=== PATIENT | female | born 1970 | race Caucasian/White ===

== ENCOUNTER 2017-03-13 15:52 | Observation (INO) | payer OTHER ==
--- NOTE | 2017-03-13 16:09 | CPEKG ---
Heart Rate: 71 RR Interval: 845 P-R Interval: 168 QRSD Interval: 94 QT Interval: 376 QTC Interval: 409 P [place]: 49 QRS [place]: 49 T Wave [place]: 21 EKG Severity - ABNORMAL ECG - EKG Impression: POSSIBLE ATRIAL ARRHYTHMIA, A-RATE 192 EKG Impression: NONSPECIFIC T ABNORMALITIES, ANT-LAT LEADS Electronically Signed By: Mingo Cruz 13-Mar-2017 16:36:28
--- NOTE | 2017-03-13 16:13 | EDPHY ---
H & P Time Seen by Provider: 03/13/17 15:53 HPI/ROS: Chief complaint. Chest pain, neck pain HPI. 46-year-old female here by EMS with left neck pain and chest pain. The patient has a history of bilateral carotid artery dissections with stent in the left carotid artery placed in 2009. She has also had vertebral artery dissection. She has a thoracic ascending aortic aneurysm. These are secondary to a connective tissue disorder. At about 12:30 p.m. she felt her blood pressure was elevating she took her blood pressure 136/94. She developed left- sided neck pain as well as mid chest pain that she describes as tight and pressure. Slight shortness of breath. No fever cough. No focal weakness or paresthesias. Patient received Versed per EMS and is requesting pain medication specifically Dilaudid by name ROS Constitutional. no fever/chills, no weakness Eyes. no problems with vision ENT. Left-sided neck pain Cardiovascular. Mid sternal chest pain Respiratory. Slight shortness of breath Abdominal. no abdominal pain, no nausea/vomiting, no diarrhea . no problems urinating MS. no calf pain/swelling, no neck/back pain, no joint pain Skin. no rash Lymph. no swollen glands Neuro. 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 Appendectomy. Thoracic ascending aortic dissection. Social History: Single, nonsmoker, no alcohol Smoking Status: Never smoked Physical Exam: General Appearance: Alert well-developed female mild distress vital signs are stable with initial blood pressure 118/86 Eyes: Pupils equal and round no pallor or injection. ENT, no bruit or thrill to the left side of her neck or either side. Respiratory: There are no retractions, lungs are clear to auscultation. Cardiovascular: Regular rate and rhythm. Gastrointestinal: Abdomen is soft and nontender, no masses, bowel sounds normal. Neurological: Awake and alert, sensory and motor exams grossly normal. Skin: Warm and dry, no rashes. Musculoskeletal: Neck is supple nontender. Extremities symmetrical, full range of motion. Psychiatric: Patient is oriented X 3, there is no agitation. Constitutional: Initial Vital Signs Temperature (C) 36.9 C 03/13/17 16:03 Heart Rate 74 03/13/17 16:03 Respiratory Rate 18 03/13/17 16:03 Blood Pressure 118/86 H 03/13/17 16:03 O2 Sat (%) 97 03/13/17 16:03 O2 Delivery Mode Room Air Allergies/Adverse Reactions: No Known Allergies Allergy (Verified 10/04/16 18:25) Home Medications: Medication Instructions Recorded Crestor 10 mg PO 08/01/11 LORATADINE 08/01/11 Lovaza 4 g PO DAILY 08/01/11 Niaspan 2,000 mg PO DAILY 08/01/11 Norvasc 10 mg 10 mg PO DAILY 08/01/11 Toprol Xl 150 mg PO BID 08/01/11 Nasonex 09/26/11 Singulair 09/26/11 Wellbutrin Sr 09/26/11 Xanax 0.5mg 09/26/11 Hydrochlorothiazide 10/04/16 Losartan Potassium 10/04/16 oxyCODONE IR [Oxycodone Ir (*)] 5 - 10 mg PO Q4H PRN #20 tab 10/04/16 Medical Decision Making - Diagnostics EKG Interpretation: EKG interpreted by me shows normal sinus rhythm normal interval. Lactic left axis deviation. QRS is normal there is T-wave inversion in leads V2 through V4. No significant ST elevation or depression. The T-wave changes are new since previous EKG July 2011. Rate is 71 EKG 2. Is unchanged. Still no ST elevation or depression. Rate is 68 Imaging Results: Imaging Impressions Chest X-Ray 03/13/17 16:30 Impression: No acute findings in the chest. Chest/Thorax CTA 03/13/17 16:30 Impression: 1. No evidence of thrombopulmonary embolic disease. 2. Normal caliber aorta. No dissection or aneurysm. 3. Clear lungs. No acute pulmonary process. Findings discussed with Emergency Department physician, Dr. Mingo Cruz on March 13, 2017 at 1750 hours. Neck CTA 03/13/17 16:30 Impression: 1. No acute dissection. 2. Widely patent left internal carotid artery stent. 3. 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 4. Focal ectasia versus pseudoaneurysm distal right internal carotid artery at the skull base is unchanged since 2009. Measurement of carotid stenosis is based on the residual internal carotid diameter with [place] Symptomatic Carotid Endarterectomy Trial (NASCET) based stenosis levels. Findings discussed with Emergency Department physician, Mingo Cruz M.D., at March 13, 2017 at 1753 hours. One-view chest x-ray interpreted by me is normal CT angiogram chest and also CTA of the vessels of the neck show no evidence of PE. Aorta is fine. There is no dissection. Left carotid stent is wide open. Right carotid is stable since 2009. Vertebral arteries are unchanged. Procedures: IV normal saline. Dilaudid for pain. Zofran for nausea ED Course/Re-evaluation: New T-wave changes Patient is asking for pain medication, anxiety medication, Compazine. She tells me that 0.5 mg Dilaudid is not sufficient for her. Re-evaluation at 5:50 p.m.. The patient and I discussed lab work, EKG findings including new subtle changes, imaging study results. Patient tells me that the last time she was in exam planned had an EKG they told her that she did have some subtle changes but she does not know what they were. She and I discussed repeating troponin and EKG. She is offered admission. 2nd troponin and 2nd EKG are unchanged. Patient agrees to admission. She is given aspirin. She refuses nitroglycerin as her physician at [facility] apparently told her never to take nitroglycerin. I consulted and discussed the case with Dr. pugh, hospitalist, who agrees to the admission Differential Diagnosis: I considered carotid and vertebral artery dissection. I considered aortic dissection. I have considered acute coronary syndrome as well as pulmonary embolus. - Data Points Laboratory Results: Laboratory Results 03/13/17 18:50 03/13/17 15:06 03/13/17 03/13/17 03/13/17 18:50 18:50 16:42 WBC REJ RBC REJ Hgb REJ POC Hgb 15.3 gm/dL gm/dL (12.3-15.9) Hct REJ POC Hct 45 % % (35.5-47.5) MCV REJ MCH REJ MCHC REJ RDW REJ Plt Count REJ MPV REJ Neut % (Auto) REJ Lymph % (Auto) REJ [place] % (Auto) REJ Eos % (Auto) REJ Baso % (Auto) REJ Nucleat RBC Rel Count REJ Absolute Neuts (auto) REJ Absolute Lymphs (auto) REJ Absolute Monos (auto) REJ Absolute Eos (auto) REJ Absolute Basos (auto) REJ Absolute Nucleated RBC REJ Immature Gran % REJ Immature Gran # REJ PT INR APTT D-Dimer POC Sodium 138 mEq/L mEq/L (134-144) Sodium POC Potassium 3.9 mEq/L mEq/L (3.3-5.0) Potassium POC Chloride 100 mEq/L mEq/L (96-108) Chloride Carbon Dioxide Anion Gap POC BUN 28 mg/dL H mg/dL (7-23) BUN Creatinine POC Creatinine 0.5 mg/dL L mg/dL (0.6-1.2) Estimated GFR Glucose POC Glucose 99 mg/dL mg/dL (70-100) Calcium Troponin I < 0.012 ng/mL ng/mL (0-0.034) 03/13/17 03/13/17 03/13/17 15:06 15:06 15:06 WBC REJ RBC REJ Hgb REJ POC Hgb Hct REJ POC Hct MCV REJ MCH REJ MCHC REJ RDW REJ Plt Count REJ MPV REJ Neut % (Auto) REJ Lymph % (Auto) REJ [place] % (Auto) REJ Eos % (Auto) REJ Baso % (Auto) REJ Nucleat RBC Rel Count REJ Absolute Neuts (auto) REJ Absolute Lymphs (auto) REJ Absolute Monos (auto) REJ Absolute Eos (auto) REJ Absolute Basos (auto) REJ Absolute Nucleated RBC REJ Immature Gran % REJ Immature Gran # REJ PT 12.2 SEC SEC (12.0-15.0) INR 0.91 (0.83-1.16) APTT 25.1 SEC SEC (23.0-38.0) D-Dimer < 0.27 ug/mLFEU ug/mLFEU (0.00-0.50) POC Sodium Sodium 135 mEq/L mEq/L (134-144) POC Potassium Potassium 4.3 mEq/L mEq/L (3.5-5.2) POC Chloride Chloride 100 mEq/L mEq/L (97-110) Carbon Dioxide 23 mEq/l mEq/l (22-31) Anion Gap 12 mEq/L mEq/L (8-16) POC BUN BUN 27 mg/dL H mg/dL (7-23) Creatinine 0.6 mg/dL mg/dL (0.6-1.0) POC Creatinine Estimated GFR > 60 Glucose 91 mg/dL mg/dL (70-100) POC Glucose Calcium 9.3 mg/dL mg/dL (8.5-10.4) Troponin I < 0.012 ng/mL ng/mL (0-0.034) Medications Given: Discontinued Medications Aspirin (Aspirin) 324 mg PO EDNOW ONE Stop: 03/13/17 20:22 Last Admin: 03/13/17 20:26 Dose: 324 mg Hydromorphone HCl (Dilaudid) 0.5 mg IVP EDNOW ONE Stop: 03/13/17 16:32 Last Admin: 03/13/17 16:45 Dose: 0.5 mg Sodium Chloride (Ns) 1,000 mls @ 0 mls/hr IV ONCE ONE PRN Reason: Wide Open Stop: 03/13/17 16:32 Last Admin: 03/13/17 16:31 Dose: 1,000 mls Lorazepam (Ativan Injection) 1 mg IVP EDNOW ONE Stop: 03/13/17 17:29 Last Admin: 03/13/17 17:35 Dose: 1 mg Ondansetron HCl (Zofran) 4 mg IVP EDNOW ONE Stop: 03/13/17 16:33 Last Admin: 03/13/17 16:45 Dose: 4 mg Point of Care Test Results: 03/13/17 16:42 POC Sodium 138 POC Potassium 3.9 POC Chloride 100 POC BUN 28 H POC Creatinine 0.5 L POC Glucose 99 Departure - Departure Disposition: [facility] Inpatient Acute Clinical Impression: Chest pain Qualifiers: Chest pain type: unspecified Qualified Code(s): R07.9 - Chest pain, unspecified Condition: Good
[2017-03-13] MEDS ORDERED: HYDROmorphONE/DILAUDID 1 MG/ML SYR IVP ONE ×2 (16:31→21:37)
[2017-03-13] MEDS ORDERED: NS 1,000 ML IV ONE (16:31)
[2017-03-13] MEDS ORDERED: ONDANSETRON 4 MG/2 ML VIAL IVP ONE (16:32)
[2017-03-13] MEDS ORDERED: IOPAMIDOL (ISOVUE 370) 100 ML BTL IV ONE (16:34)
[2017-03-13 17:18] LABS: INR 0.91 (0.83-1.16); PROTIME(PATIENT) 12.2 SEC (12.0-15.0)
[2017-03-13 17:19] LABS: APTT 25.1 SEC (23.0-38.0)
[2017-03-13 17:22] LABS: ANION GAP 12 mEq/L (8-16); CALCIUM 9.3 mg/dL (8.5-10.4); CARBON DIOXIDE 23 mEq/l (22-31); CHLORIDE 100 mEq/L (97-110); CREATININE 0.6 mg/dL (0.6-1.0); GLOMERULAR FILTRATION RATE > 60; GLUCOSE 91 mg/dL (70-100); POTASSIUM 4.3 mEq/L (3.5-5.2); SODIUM 135 mEq/L (134-144)
[2017-03-13] MEDS ORDERED: LORazepam 2 MG/ML INJ IVP ONE ×2 (17:28→21:34)
[2017-03-13 17:34] LABS: TROPONIN I < 0.012 ng/mL (0-0.034)
--- NOTE | 2017-03-13 18:31 | CPEKG ---
Heart Rate: 68 RR Interval: 882 P-R Interval: 172 QRSD Interval: 86 QT Interval: 412 QTC Interval: 439 P [place]: 46 QRS [place]: 41 T Wave [place]: 45 EKG Severity - ABNORMAL ECG - EKG Impression: SINUS RHYTHM EKG Impression: NONSPECIFIC T ABNORMALITIES, ANTERIOR LEADS Electronically Signed By: Mingo Cruz 13-Mar-2017 21:31:34
[2017-03-13] MEDS ORDERED: NITROGLYCERIN 0.4 MG BTL SL PRN (20:21)
[2017-03-13] MEDS ORDERED: ASPIRIN 81 MG CHEWABLE TAB PO ONE (20:21)
[2017-03-13] MEDS ORDERED: ONDANSETRON 4 MG/2 ML VIAL IVP PRN (23:10)
[2017-03-13] MEDS ORDERED: ACETAMINOPHEN 325 MG TAB PO PRN (23:10)
[2017-03-13] MEDS ORDERED: ONDANSETRON DISINTEGRATING 4 MG TAB PO PRN (23:10)
[2017-03-13] MEDS ORDERED: oxyCODONE IR 5 MG TAB PO PRN (23:13)
[2017-03-13] MEDS: NS 1,000 ML IV SCH (23:26)
[2017-03-13] MEDS: HYDROmorphONE/DILAUDID 1 MG/ML SYR IVP PRN (23:47)
[2017-03-13] MEDS: MONTELUKAST SODIUM 10 MG TAB PO SCH (23:48)
[2017-03-13] MEDS: ALPRAZolam 1 MG TAB PO PRN (23:48)
[2017-03-13] MEDS: NIACIN ER 500 MG TAB.ER PO SCH (23:49)
[2017-03-13] MEDS: METOPROLOL SUCCINATE XR 50 MG TAB PO SCH (23:56)
--- NOTE | 2017-03-14 01:11 | GHP ---
[f rep st] HISTORY AND PHYSICAL DATE OF ADMISSION: 03/13/2017 CHIEF COMPLAINT: Chest and neck pain. HISTORY OF PRESENT ILLNESS: A 46-year-old female with a complicated medical history. She has some undefined connective tissue disorder which causes vascular aneurysms and dissections. She has had b ilateral carotid as well as vertebral artery dissections. She also has a thoracic aortic aneurysm. She sees physicians at [facility]. She is on a regimen of blood pressure medicine to keep he r blood pressure in the low 100s in order to prevent further dissections. She states that yesterday she had some heart palpitations in which she describes her heart stopping and her heart pausing for a short amount of time then speeding up. It was not a continuous tachycardia. She felt a little b it unwell this morning with predominantly fatigue. When she got to work, she developed some chest p ain and neck pain which was consistent with previous episodes of elevated blood pressure. She measu red her blood pressure and it was in the 130s to 140s which is high for her. She then came to the e mergency department. She states that this happens a few times a year and she usually goes to [facility] There, they give her pain medicine which then brings the blood pressure down. She is requestin g Dilaudid and Ativan. She states that she did not get enough of this in the ER and she is continui ng to have pain. She says the pain is a little bit different than previous and little bit more pres sure-like. She also has some dyspnea on exertion. She has not had any fevers or chills. REVIEW OF SYSTEMS: A 10-point Review of Systems was obtained and negative. PAST MEDICAL HISTORY: 1. Unspecified connective tissue disorder with bilateral carotid dissections as well as a left dailey tid stent. She also has a thoracic aortic aneurysm. 2. Chronic pain secondary to above. She sees pain management for that. 3. Depression and anxiety. MEDICATIONS: Reviewed. SOCIAL HISTORY: No smoking or alcohol. 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 FAMILY HISTORY: Did have grandfather who early from a ruptured aneurysm. PHYSICAL EXAM: VITAL SIGNS: Afebrile, blood pressure is 105/68, heart rate 67, oxygen saturation i s 95% on room air. GENERAL: The patient is well developed, no apparent distress. HEENT: Nonicter ic sclerae. Extraocular muscles intact. Moist mucous membranes. NECK: Supple. LUNGS: Good effo rt. Clear to auscultation bilaterally. CARDIOVASCULAR: Regular rate and rhythm. No murmurs, gall ops. EXTREMITIES: No clubbing, cyanosis, or edema. 2+ pedal pulses. NEUROLOGIC: Alert and orien glenn x3. Moving all 4 extremities equally. PSYCH: Normal mood and affect. LABORATORY DATA: Chemistries essentially normal. Troponins have been negative x3. EKG did show so me anterior T-wave inversions. CTA of the neck shows no dissections and patent left internal caroti d artery stent. CT of the chest is essentially negative with normal caliber aorta. ASSESSMENT: This is a 46-year-old female with history of an unspecified connective tissue disorder with a previous history of multiple dissections, who presents with chest and neck pain and high bloo d pressure that is a little bit higher than what her goal is. PLAN: 1. Chest and neck pain. The patient states that this is due to pressure on her vascular glaser. Napoleon geiger does have chronic pain. We will give her a bit more pain medicine tonight to see if we can get he r blood pressure better and comfortable enough to go home tomorrow. 2. Elevated blood pressure. This is above her goal of 100/60. If pain medicine does not work, jennifer sage add a little bit of clonidine which she has as-needed for systolic over 160. 3. Chest pain with anterior T-wave inversions. These are subtle. Her chest pain seems to be more typical. I am unclear of her congenital disease predisposes her to heart disease. However, she is a high risk cath patient due to her vascular abnormalities. She is also unable to get a stress test because they increase her blood pressure. We will continue to monitor overnight in telemetry. Jennifer sage get an echocardiogram in the morning. Will also get a troponin. They did do a cardiac CT in 2010 , and I am not sure if we need to do that again, but could consider that if her chest pain continues . Could also have Cardiology involved. 4. Disposition. Patient is being admitted to observation status. Case discussed with ER physician . Old records reviewed and summarized in HPI. /[id number]/MODL
[2017-03-14] MEDS: METOPROLOL SUCCINATE XR 50 MG TAB PO SCH ×3 (03:50→20:51)
[2017-03-14] MEDS: ALPRAZolam 1 MG TAB PO PRN (03:51)
[2017-03-14] MEDS ORDERED: KETOROLAC 30 MG/1 ML SDV IVP ONE (04:15)
[2017-03-14] MEDS: CETIRIZINE 10 MG TAB PO SCH (08:52)
[2017-03-14] MEDS: ROSUVASTATIN CALCIUM 10 MG TAB PO SCH (08:52)
[2017-03-14] MEDS: LOSARTAN POTASSIUM 50 MG TAB PO SCH (08:52)
[2017-03-14] MEDS: HYDROCHLOROTHIAZIDE 12.5 MG CAP PO SCH (08:52)
[2017-03-14] MEDS: buPROPion XL 150 MG TAB PO SCH (08:53)
[2017-03-14] MEDS ORDERED: MOMETASONE FUROATE NASAL SCH (09:00)
[2017-03-14] MEDS ORDERED: buPROPion XL 150 MG TAB PO SCH (09:00)
--- NOTE | 2017-03-14 09:06 | CPEKG ---
Heart Rate: 57 RR Interval: 1053 P-R Interval: 188 QRSD Interval: 82 QT Interval: 428 QTC Interval: 417 P [place]: 64 QRS [place]: 64 T Wave [place]: 55 EKG Severity - BORDERLINE ECG - EKG Impression: SINUS RHYTHM EKG Impression: NONSPECIFIC ST_T WAVE ABNORMAILITES Electronically Signed By: Jose Barry 14-Mar-2017 12:09:24
[2017-03-14] MEDS ORDERED: KETOROLAC 15 MG/1 ML SDV IVP ONE (09:10)
--- NOTE | 2017-03-14 09:10 | ECHO ---
[id number] + + [address] : : [place] [address] : : [phone] + Adult Echocardiographic Report + + :Name: OTNI GOMES JStudy Date: 03/14/2017 08:23 AM : : Hospital Admission Number: [id number] Loc ation: 143: :: 1970 Gender: Female Height: 64 in : :Age: 46 yrs Race: WH Weight: 144 lb : :Reason For Study: Eval LV Fx : : BSA: 1.7 me ters2 : :History: Chest Pain : + + MMode/2D Measurements \T\ Calculations IVSd: 0.71 cm LVIDd: 4.7 cm FS: 41.3 % Ao root diam: 2.9 cm LVPWd: 0.76 cm LVIDs: 2.7 cm EDV(Teich): 99.8 ml ACS: 1.8 cm ESV(Teich): 27.8 ml LA dimension: 3.0 cm EF(Teich): 72.2 % Normal Measurement Values: + + :LVIDd (3.5-5.7cm) IVSd (0.6-1.1cm) LVPWd (0.6-1.1cm) Aortic Root (2.0-3.7cm)Left Atrium (1.5-4.0cm): :LV Vol(d) (76-115ml) LV Vol(s) (29-48ml) Ejec Fraction (50-65%)PV Reinaldo (0.6- 1.2m/s) TV Reinaldo (0.4-1.0m/s) : :MV E Reinaldo (0.8-1.0m/s)MV A Reinaldo (0.3-1.0m/s)LVOT Reinaldo (0.7-1.2m/s) Asc Ao Reinaldo ( 0.9-1.8m/s) : + + Doppler Measurements \T\ Calculations MV E max rienaldo: Ao V2 max: LV V1 max: PA V2 max: 62.2 cm/sec 125.0 cm/sec 95.8 cm/sec 85.5 cm/sec MV A max reinaldo: Ao max P.3 mmHgLV V1 max PG: PA max P.7 cm/sec 3.7 mmHg 2.9 mmHg MV E/A: 1.0 TR max reinaldo: 209.0 cm/sec TR max P.5 mmHg RAP systole: 5.0 mmHg RVSP(TR): 22.5 mmHg Left Ventricle The left ventricle is normal in size and function. There is normal left ventricular wall thickness. The left ventricular ejection fraction is normal. Ejection Fraction = 73%. The left ventricular wall motion is normal. Right Ventricle The right ventricle is normal in size and function. Atria The left atrial size is normal. Right atrial size is normal. Mitral Valve The mitral valve is normal in structure and function. There is no mitral valve stenosis. There is trace mitral regurgitation. Tricuspid Valve There is trace to mild tricuspid regurgitation. Right ventricular systolic pressure is normal. Aortic Valve The aortic valve is trileaflet. The aortic valve opens well. There is no aortic stenosis. There is no aortic insufficiency. Pulmonic Valve The pulmonic valve is normal in structure and function. Great Vessels There is known borderline dilated Ao at 3.2 cm from 7.28.11, the ascending Ao measure 3.2 on this exam. Pericardium/Pleural There is no pericardial effusion. Conclusion A complete two-dimensional transthoracic echocardiogram was performed (2D, M-mode, Doppler and color flow Doppler). The left ventricle is normal in size and function. The left ventricular ejection fraction is normal. Ejection Fraction = 73%. The left ventricular wall motion is normal. The left atrial size is normal. Right atrial size is normal. The mitral valve is normal in structure and function. There is trace mitral regurgitation. There is trace to mild tricuspid regurgitation. Right ventricular systolic pressure is normal. The aortic valve is trileaflet. The pulmonic valve is normal in structure and function. There is known borderline dilated Ao at 3.2 cm from 7.28.11, the ascending Ao measure 3.2 on this exam. There is no pericardial effusion. Final Reading Physician: Dr Karis Abraham electronically signed on 03/14/2017 09:09 AM Ordering Physician: Ash Cisse Performed By: Wilian Son, [facility]
[2017-03-14] MEDS: NS 1,000 ML IV SCH ×3 (11:57→20:51)
[2017-03-14] MEDS: FLUTICASONE NASAL 120 SPRAYS/16 GM MDI EACHNARE SCH (13:28)
--- NOTE | 2017-03-14 13:43 | GCON ---
[f rep st] CONSULTATION CARDIOLOGY CONSULT DATE OF CONSULTATION: 03/14/2017 CHIEF COMPLAINT: Chest pain. HISTORY OF PRESENT ILLNESS: We were asked by Dr. Schuster to visit with the patient. The patient is a 46-year-old female with a history of nonspecific vascular disease. She does not carry a diagnosi s of vasculitis but has some undefined connective tissue disease that has manifest, since age 35, wi th dissections. She has had 2 separate dissections of the left carotid artery. The second required stenting and was complicated by stroke. 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 She had a dissection/fenestration of the right vertebral artery and an aneury sm of the right vertebral artery. She has borderline dilation of the ascending aorta and also intra mural hematoma formation in her descending aorta. She has gotten her vascular care at the [facility], as well as the [facility]. She is a very good historian and tells me that she has been tested for fibromuscular dysplasia, a variant of Loeys-Bartolome aortopathy, Nestor-Danlos, Mar randall's. At this point, she does not have a clear diagnosis for her aortopathy. She has never had a coronary event. She also sees Dr. Capone for tight blood pressure control. Yesterday, she presented to the ER because she was having increasing blood pressures at work. This happens a few times a year where she notices increased blood pressure associated with neck discomfor t and facial flushing. She also had some associated chest tightness. A few nights prior to this, s he had some palpitations while in bed. The day before she had the palpitations, she had gone on a l onger walk than usual and had a little bit of chest tightness. She also notes that she has had 2 ni ghts of cold sweats. In the ER, she was hypertensive for her, 145/90. Her goal blood pressure is 100-110/70. She was tr eated for this, and her blood pressure has improved, but she remains concerned that it took longer t rankin normal to improve. She also had a headache, quite severe, starting at 4 this morning that has r esponded somewhat to Toradol. She is currently not having chest pain. Troponins have been negative . REVIEW OF SYSTEMS: As per HPI. Otherwise, a full 10-point review of systems performed was negative . ALLERGIES: No known drug allergies. MEDICATIONS: Outpatient medications are reviewed in the chart. PAST MEDICAL HISTORY: 1. Vascular disease, as detailed above. 2. History of migraine headaches. 3. Depression and anxiety. SOCIAL HISTORY: The patient is single. 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 She d oes not smoke cigarettes or drink alcohol. FAMILY HISTORY: Notable for vascular disease, including aortic disease. PHYSICAL EXAM: VITAL SIGNS: Blood pressure 118/82. Heart rate is 70. Oxygen saturation is 95% on room air. Respiratory rate 16. She is afebrile. GENERAL: Well-appearing, middle-aged female, in no acute distress. HEENT: Sclerae are clear. No jaundice. Mucous members are moist. Normocephal ic, atraumatic. CARDIOVASCULAR: JVP is less than 10. Carotids equal and 2+, without bruit. Regul ar rate and rhythm, without murmur, rub, or gallop. LUNGS: Clear to auscultation bilaterally, with out wheezing, rhonchi, or rales. ABDOMEN: Soft, nontender, nondistended, without bruits, masses, h epatosplenomegaly. EXTREMITIES: Warm, well perfused, without cyanosis, clubbing, or edema. NEURO: Alert and oriented x3, without gross focal neuro deficits. Appropriate mood and affect. LABORATORY DATA: Point of care hemoglobin was 15. D-dimer and INR normal. Sodium 138, potassium 3. 9, chloride 100, bicarb 23, BUN 27, creatinine 0.5. Troponin negative x4. Calcium 9.3. EKG reviewed by me. I have reviewed several EKGs back to 2010. Sinus rhythm with nonspecific anter ior T-wave abnormality. Overall, not significantly changed. Echocardiogram reviewed by me: Normal LV size and systolic function with normal wall motion. Mild tricuspid regurgitation, normal estimated pulmonary pressure. Ascending aorta is 3.[address] angiogram: No PE. Normal caliber aorta. No dissection or aneurysm. Clear lungs. Neck C T angiogram: No dissection. Widely patent left internal carotid artery stent. Right vertebral art vivian duplication versus fenestration that is stable since 2009. Focal ectasia versus pseudoaneurysm of the distal right internal carotid artery, unchanged since 2009. ASSESSMENT AND PLAN: A 46-year-old female with vascular disease characterized by carotid dissection and intramural hematoma formation of the aorta. She presents with increasing blood pressure, chest discomfort, palpitations and headache. Troponins are negative. EKG is unchanged, and echo is norm al, which is all reassuring. 1. Chest pain and history of unusual vascular disease: Despite her reassuring lab values and echoc ardiogram, I do think we should perform a CT coronary angiogram to rule out coronary anomaly or diss ection given her history of spontaneous carotid dissection. Continue tight blood pressure control. Continue her outpatient regimen, which includes tight blood pressure control, statin. 2. Headache: She does have a history of migraines. She does not think she has ever had brain imag ing. We will get a CT angiogram of her cerebral vessels. If the above studies are normal, she can probably be discharged home later today. Case discussed with Dr. Schuster. Copy requested to: Dr. Capone /[id number]/MODL
[2017-03-14 13:53] LABS: % IMMATURE GRANULYOCYTES 0.4 % (0.0-1.1); ABSOLUTE IMMATURE GRANULOCYTES 0.02 10^3/uL (0.00-0.10); ADD DIFF? NO; ADD MORPH? NO; ADD SCAN? NO; ATYPICAL LYMPHOCYTE FLAG 30 (0-99); FRAGMENT RBC FLAG 0 (0-99); HEMATOCRIT 40.2 % (38.0-47.0); HEMOGLOBIN 14.3 g/dL (12.6-16.3); LEFT SHIFT FLG 0 (0-99); LIPEMIA HEMOLYSIS FLAG 90 (0-99); MEAN CELL HEMOGLOBIN 33.7 pg (27.9-34.1); MEAN CELL HEMOGLOBIN CONCENTR. 35.6 g/dL (32.4-36.7); MEAN CELL VOLUME 94.8 fL (81.5-99.8); PLATELET CLUMPS FLAG 0 (0-99); PLATELET COUNT 238 10^3/uL (150-400); RED BLOOD CELL COUNT 4.24 10^6/uL (4.18-5.33); RED CELL DISTRIBUTION WIDTH 11.4 % (11.5-15.2)
[2017-03-14] MEDS ORDERED: METOPROLOL TARTRATE 25 MG TAB PO ONE ×2 (15:00→15:45)
[2017-03-14] MEDS: LORazepam 2 MG/ML INJ IVP PRN (15:08)
[2017-03-14] MEDS ORDERED: IOPAMIDOL (ISOVUE 370) 100 ML BTL IV ONE (16:45)
[2017-03-14] MEDS: HYDROmorphONE/DILAUDID 1 MG/ML SYR IVP PRN ×2 (17:21→21:17)
--- NOTE | 2017-03-14 17:32 | HOSPPROG ---
Hospitalist Progress Note Assessment/Plan: # GREENE - check CTA head # abnormal ecg and chest pain - check cardiac CT # significant contrast load - plan IV hydration overnight for renal protection # relative hypertension in the setting of connective tissue disease with thoracic aneurysm mary hx carotid dissection - cont anti-htn's Subjective: ongoing GREENE, CP Objective: Vital Signs Temp Pulse Resp BP Pulse Ox 37.0 C 69 18 115/77 92 03/14/17 15:52 03/14/17 15:52 03/14/17 15:52 03/14/17 15:52 03/14/17 15:52 Laboratory Results 03/14/17 13:45 03/13/17 03/14/17 03/15/17 05:59 05:59 05:59 Intake Total 50 Balance 50 PT 12.2 SEC (12.0-15.0) 03/13/17 15:06 INR 0.91 (0.83-1.16) 03/13/17 15:06 chart reviewed discussed with Dr Abraham - she will consult ICD10 Worksheet Patient Problems: Problems Problem Status Onset Chest pain Acute
[2017-03-14] MEDS: MONTELUKAST SODIUM 10 MG TAB PO SCH (20:51)
[2017-03-14] MEDS: NIACIN ER 500 MG TAB.ER PO SCH (21:00)
[2017-03-15] MEDS: ALPRAZolam 1 MG TAB PO PRN (01:43)
[2017-03-15] MEDS: LORazepam 2 MG/ML INJ IVP PRN (01:51)
[2017-03-15] MEDS ORDERED: KETOROLAC 15 MG/1 ML SDV IVP ONE (03:00)
[2017-03-15 06:11] LABS: ANION GAP 5 mEq/L (8-16); CALCIUM 8.6 mg/dL (8.5-10.4); CARBON DIOXIDE 27 mEq/l (22-31); CHLORIDE 107 mEq/L (97-110); CREATININE 0.6 mg/dL (0.6-1.0); GLOMERULAR FILTRATION RATE > 60; GLUCOSE 91 mg/dL (70-100); POTASSIUM 4.9 mEq/L (3.5-5.2); SODIUM 139 mEq/L (134-144)
[2017-03-15 10:17] VITALS: RESP 18; TEMP 98.3; O2SAT 94
[2017-03-15] MEDS: LOSARTAN POTASSIUM 50 MG TAB PO SCH (10:28)
[2017-03-15] MEDS: METOPROLOL SUCCINATE XR 50 MG TAB PO SCH (10:32)
[2017-03-15] MEDS: CETIRIZINE 10 MG TAB PO SCH (10:35)
[2017-03-15] MEDS: buPROPion XL 150 MG TAB PO SCH (10:36)
[2017-03-15] MEDS: HYDROCHLOROTHIAZIDE 12.5 MG CAP PO SCH (10:36)
--- NOTE | 2017-03-15 10:36 | PDCARPN ---
Cardiology Progress Note Assessment/Plan: Assessment/plan: 46 yo F with history of spontaneous carotid dissections and aortopathy. Her genetic diagnosis is not clear. She is followed at the [facility]. Admitted 03/13 with increased BP, CP, palpitations. Her troponins are normal, echo normal. CT imaging of carotids, aorta, head vessels and coronary arteries are reassuring (stable pathology of her carotid and verterbral arteries). BP better. 1. Vascular disease: stable. No new dissection. Continue tight blood pressure control, asa, statin 2. HTN: continue home meds 3. CP: neg trops, reassuring cor CT. Continue med mx 4. GREENE: may be due to late dosing of BP meds. No intracranial pathology on head CT From cardiac standpoint, stable for discharge. Follow up with [facility]. She also sees Dr. Capone for her BP management. 03/15/17 10:38 Subjective: Henny had a bad GREENE overnight, partially responsive to ativan. Still has 3/10 GREENE. [place] CP and head pounding when she had a more severe GREENE. Reviewed/Discussed With: hospitalist Objective: Vital Signs (8 Hrs) Temp Pulse Resp BP Pulse Ox 03/15/17 08:00 36.8 C 58 L 18 96/61 L 94 03/15/17 05:45 36.6 C 56 L 14 94/59 L 95 Intake/Output (24 Hrs) 03/14/17 03/15/17 03/16/17 05:59 05:59 05:59 Intake Total 100 Balance 100 Intake: Oral (ml) 100 Other: Number of Voids Toilet 1 Upset about headache JVP <10 RRR no m/r/g Lungs CTAB No edema Result Diagrams: 03/14/17 13:45 03/15/17 05:50 Telemetry: NSR. Occ PACs ICD10 Worksheet Patient Problems: Problems Problem Status Onset Chest pain Acute
[2017-03-15 10:38] VITALS: BP 96/63; PULSE 70
[2017-03-15] MEDS ORDERED: ASPIRIN 81 MG CHEWABLE TAB PO SCH (10:45)
[2017-03-15] MEDS: ROSUVASTATIN CALCIUM 10 MG TAB PO SCH (10:51)
[2017-03-15] MEDS: FLUTICASONE NASAL 120 SPRAYS/16 GM MDI EACHNARE SCH (11:37)
--- NOTE | 2017-03-15 12:15 | GDS ---
[f rep st] DISCHARGE SUMMARY DIAGNOSES: 1. Headache. 2. Abnormal EKG. 3. Chest pain. 4. Connective tissue disorder with thoracic aneurysm and a history of carotid dissection. HOSPITAL COURSE: A 46-year-old female presented with multiple nonspecific complaints. She felt the y were mostly related to her relatively uncontrolled hypertension. Because of her connective tissue disorder, she keeps her blood pressure very low, systolic around 100. She does have a thoracic ane urysm as well as a history of a carotid dissection which required a stent. Complaints were of heada shiloh. 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 C T angiogram of the neck also showed this but nothing else significant. She also had a CT angio of h er chest and thorax which showed a relatively normal caliber thoracic aorta. She does have mild nuris que in the descending aorta. She had an echocardiogram which was relatively unremarkable. Because of her chest pain, she had a cardiac CT which was normal. She was seen by Dr. Abraham who agrees that she is safe for discharge at this point. Because her primary complaint is headache, I have given he r prescription for Toradol. I discussed with her that she has a primary headache disorder, would be nefit from following with a neurologist and potentially preventative medications such as Topamax. S he does not want to start anything additional right now. I have given her a referral to see Dr. Tg bernardo as an outpatient. FOLLOWUP: 1. Dr. Hollins, as above. 2. Dr. Capone for strict blood pressure control. 3. [facility] as needed for management of her connective tissue disorder. 4. I have given her a referral to see Dr. Brown for ongoing monitoring of her carotid aneurysm. BILLING: I spent more than 30 minutes on the day of discharge coordinating her care. /[id number]/MODL
[2017-03-15] MEDS ORDERED: IBUPROFEN 600 MG TAB PO ONE (12:45)
[2017-03-15] MEDS ORDERED: KETOROLAC 30 MG/1 ML SDV IVP ONE (13:00)
[2017-03-15] MEDS ORDERED: KETOROLAC 30 MG/1 ML SDV IM ONE (13:45)
== END 2017-03-15 14:22 | disposition home or self-care (01) ==
LOC: EDUNIT# → F1N 21:58 → OBSVTOIN 03-14 17:28 → INTOOBSV 03-14 17:28
PROVIDERS: ADMIT Internal Medicine; ATTEND Internal Medicine
DX: R07.89 Other chest pain (principal); R51 Headache; R94.31 Abnormal electrocardiogram [ECG] [EKG]; L94.9 Localized connective tissue disorder, unspecified; I71.2 Thoracic aortic aneurysm, without rupture; I10 Essential (primary) hypertension; I77.71 Dissection of carotid artery; F41.8 Other specified anxiety disorders
CPT/HCPCS: 70496; 70498; 71275; 75574; 93005; 93306; 96361; 96374; 96375; 96376; 99285; G0378; 82947-QW; J1170; J1885; J2060; J2405; Q9967